=== PATIENT | male | born 1940 | race Caucasian/White ===

== ENCOUNTER 2017-02-10 04:59 | Day surgery (SDC) | payer OTHER ==
[2017-01-27 12:08] VITALS: BMI 27.0
--- NOTE | 2017-01-27 12:45 | PAT Medication Instructions ---
Service Date Jan 27, 2017. Current Home Medication List Aspirin (Aspirin Ec), 325 MG PO QPM Cholecalciferol (Vitamin D), 2,000 UNITS PO QPM Doxycycline Monohydrate (Monodox), 100 MG PO BID PRN for RN Dutasteride-Tamsulosin Hcl (Christin), 1 CAP PO HS Lisinopril (Zestril), 20 MG PO BID Metformin Hcl (Glucophage Ext Rel), 1,000 MG PO BID Methylsulfonylmethane (Msm), 1,500 MG PO QAM Metoprolol Succ (Toprol Xl) (Toprol-Xl), 25 MG PO QPM Nifedipine Ext Rel (Procardia Xl Ext Rel), 30 MG PO QPM Orphenadrine Citrate (Norflex), 200 MG PO BID PRN for RN Pantoprazole (Protonix), 40 MG PO QPM Red Yeast Rice Extract (Red Yeast Rice), 1,200 MG PO QPM Red Yeast Rice Extract (Red Yeast Rice), 600 MG PO QAM Sitagliptin Phosphate (Januvia), 100 MG PO QPM Medication Instructions For Your Scheduled Surgery - Hold the following medications 2 weeks prior to surgery: Aspirin (Aspirin Ec), 325 MG PO QPM - Hold the following medications 2 weeks prior to surgery: Red Yeast Rice Extract (Red Yeast Rice), 1,200 MG PO QPM Red Yeast Rice Extract (Red Yeast Rice), 600 MG PO QAM - Hold the following medications 48 hours prior to surgery: Metformin Hcl (Glucophage Ext Rel), 1,000 MG PO BID - Hold the following medications the morning of surgery: Lisinopril (Zestril), 20 MG PO BID Orphenadrine Citrate (Norflex), 200 MG PO BID PRN for RN Methylsulfonylmethane (Msm), 1,500 MG PO QAM - Take the following medications the morning of surgery with a sip of water: Pantoprazole (Protonix), 40 MG PO QPM - Hold the following medications as scheduled the night before surgery: Lisinopril (Zestril), 20 MG PO BID - Take the following medications as scheduled the night before surgery: Sitagliptin Phosphate (Januvia), 100 MG PO QPM Nifedipine Ext Rel (Procardia Xl Ext Rel), 30 MG PO QPM Metoprolol Succ (Toprol Xl) (Toprol-Xl), 25 MG PO QPM Dutasteride-Tamsulosin Hcl (Christin), 1 CAP PO HS Cholecalciferol (Vitamin D), 2,000 UNITS PO QPM Doxycycline Monohydrate (Monodox), 100 MG PO BID PRN for RN Orphenadrine Citrate (Norflex), 200 MG PO BID PRN for RN Doxycycline Monohydrate (Monodox), 100 MG PO BID PRN for RN Methylsulfonylmethane (Msm), 1,500 MG PO QAM If you have any questions please call us at [phone] (Pam Manriquez PA-C ) or [phone] or [phone]
--- NOTE | 2017-01-27 13:13 | DIAGNOSTIC IMAGING REPORT ---
TWO VIEW CHEST CLINICAL HISTORY: Preoperative examination. FINDINGS: PA and lateral chest radiographs are obtained. No prior studies are available for comparison at the time of dictation. The patient is status post midline sternotomy and aortic valve replacement. The heart is top normal for projection. There is atherosclerotic calcification of the thoracic and. The pulmonary vascular structures noncongested. The lungs and pleural spaces are clear. There is no pneumothorax. The skeletal structures are osteopenic. The bony thorax appears intact. IMPRESSION: No active disease in the chest. Electronically signed by: Ga Gutiérrez M.D. 01/27/2017 1:11 PM Dictated Date/Time: 01/27/2017 1:11 PM
[2017-01-27 13:18] LABS: BASO % 0.3 %; BASO ABS # 0.03 K/uL (0-0.2); COMPLETE YES; EOS % 2.7 %; HEMATOCRIT 42.2 % (42-52); IG% 0.3 %; LYMPH % 19.3 %; LYMPH ABS # 1.95 K/uL (1.2-3.4); MEAN CELL VOLUME 90.2 fL (80-100); MEAN CORPUSCULAR HEMOGLOBIN 31.8 pg (25-34); MEAN CORPUSCULAR HGB CONC 35.3 g/dl (32-36); MEAN PLATELET VOLUME 11.7 fL (7.4-10.4); MONO % 9.3 %; NEUT % 68.1 %; PLATELET COUNT 201 K/uL (130-400); RED BLOOD COUNT 4.68 M/uL (4.7-6.1); WHITE BLOOD COUNT 10.08 K/uL (4.8-10.8)
[2017-01-27 13:24] LABS: URINE APPEARANCE CLEAR (CLEAR); URINE BILIRUBIN NEG (NEG); URINE COLOR YELLOW; URINE NITRITE NEG (NEG); URINE PH 6.5 (4.5-7.5); URINE SPECIFIC GRAVITY 1.022 (1.000-1.030); UROBILINOGEN NEG (NEG)
[2017-01-27 13:31] LABS: MANUAL MICROSCOPIC REQUIRED? NO; REVIEW REQ? NO
[2017-01-27 13:37] LABS: BUN/CREATININE RATIO 19.6 (10-20); CALCIUM 9.5 mg/dl (8.5-10.1); CREATININE 0.96 mg/dl (0.60-1.40)
[~2017-02-10] VITALS: Ht 182.9 cm; Wt 92.4 kg
[~2017-02-10 04:59] MED LIST: ASPI325T39 PO; CHOL20009 PO; DOXY100C76 PO; DUTACAP PO; LISI-725 PO; METF1TAB53 PO; METO25TA3 PO; NIFE30TA83 PO; ORPH100T PO; PANT40TA PO; RED600TA PO; REDCAP2 PO; SITA100T3 PO; [UNRECOGNIZED DRUG - CODE] PO
[2017-02-10 05:41] VITALS: BP 153/78; PULSE 73; TEMP 36.4; O2SAT 99; Ht 182.9 cm; Wt 92.4 kg
[2017-02-10] MEDS ORDERED: LACTATED RINGER'S 1000ML 1,000 ML IV SCH (06:00)
[2017-02-10] MEDS ORDERED: CIPROFLOXACIN / D5W 400 MG IV SCH (06:00)
[2017-02-10] MEDS ORDERED: LIDOCAINE HCL 2% 2 ML VIAL (20MG/ML) ONE (06:55)
[2017-02-10] MEDS ORDERED: FENTANYL CITRATE INJ 50 MCG/1 ML 2 ML VIAL ONE ×2 (06:55→08:27)
[2017-02-10] MEDS ORDERED: PROPOFOL IV EMULSION 10 MG/ML 20 ML VIAL IV ONE (06:55)
[2017-02-10] MEDS ORDERED: MIDAZOLAM HCL 1 MG/ML 2ML VIAL ONE (06:56)
--- NOTE | 2017-02-10 07:02 | History & Physical Bridge Note ---
H&P Re-Evaluation Bridge Note: I have examined the patient, reviewed the History & Physical and in the interval since the performance of the History & Physical I have noted the following changes of clinical significance: No changes noted
[2017-02-10] MEDS ORDERED: PHEN-775 PO (07:28)
[2017-02-10] MEDS ORDERED: OXYC-57 PO (07:28)
[2017-02-10] MEDS ORDERED: CIPR-255 PO (07:28)
--- NOTE | 2017-02-10 07:39 | Discharge Instructions ---
Discharge Instructions Date of Service Feb 10, 2017. Admission Reason for Admission: Benign Prostatic Hypertrophy Discharge Discharge Diagnosis / Problem: BPH s/p GLTURP Discharge Goals Goal(s): Decrease discomfort, Improve function, Improve disease control, Therapeutic intervention Activity Recommendations Activity Limitations: per Instructions/Follow-up section Lifting Limitations: no more than 25 pounds, gradually increase as tolerated ( over a week) Exercise/Sports Limitations: rest today, gradually increase as tolerated ( over a week) May Resume Sexual Activity: after two weeks Shower/Bathe: tomorrow (no tub bath with catheter in place) Driving or Machine Use: resume 3 days after discharge Catheter to gravity drainage as instructed Blood in and around the catheter is expected . Instructions / Follow-Up Instructions / Follow-Up Appointment for catheter removal has been moved up to Friday02/12/17 at 09:45 AM. Please call office with any concerns. Discharge Diet Recommended Diet: Regular Diet (good fluid intake) Procedures Procedures Performed: Greenlight TURP, internal urethrotomy Pending Studies Studies pending at discharge: no Medical Emergencies . Who to Call and When: Medical Emergencies: If at any time you feel your situation is an emergency, please call 911 immediately. . Non-Emergent Contact Non-Emergency issues call your: Urologist Call Non-Emergent contact if: you have a fever, temperature is above 101, your pain is not controlled, your pain is worsening, your pain is unusual for you, your pain is concerning you, you have any medication questions . . "Provider Documentation" section prepared by Hong Bagley. VTE Core Measure Inpt VTE Proph given/why not?: SCD's [place] Drug Monitoring Program Search Results: patient reviewed within database, no issues identified
[2017-02-10] MEDS ORDERED: ONDANSETRON INJ 2 MG/ML 2 ML VIAL ONE (07:51)
[2017-02-10] MEDS ORDERED: BELLADONNA/OPIUM SUPP 60 MG SUPP PR ONE ×2 (07:51→08:26)
[2017-02-10] MEDS ORDERED: ATROPINE SULFATE 0.1 MG/ML 5ML SYR IV PRN (08:00)
[2017-02-10] MEDS ORDERED: PHENYLEPHRINE 100MCG/ML 5ML SYR IV PRN (08:00)
[2017-02-10] MEDS ORDERED: ONDANSETRON INJ 2 MG/ML 2 ML VIAL IV PRN (08:00)
[2017-02-10] MEDS ORDERED: HYDROmorphone INJ 2 MG/ML SYR/VIAL IV PRN (08:00)
[2017-02-10] MEDS ORDERED: EpHEDrine SULFATE INJ 50 MG/ML AMP IV PRN (08:00)
[2017-02-10] MEDS ORDERED: EpHEDrine SULFATE 50MG/5ML SYR ONE (08:02)
[2017-02-10] MEDS ORDERED: PHENYLEPHRINE 100MCG/ML 5ML SYR ONE (08:09)
[2017-02-10] MEDS ORDERED: PHENAZOPYRIDINE HCL 100 MG TAB PO PRN (09:00)
[2017-02-10] MEDS ORDERED: OXYCODONE/ACETAMINOPHEN 5-325 TAB PO PRN (09:00)
--- NOTE | 2017-02-10 09:23 | [facility] Post Operative Brief Note ---
Immediate Operative Summary Operative Date Feb 10, 2017. Pre-Operative Diagnosis Benign Prostatic Hyperplasia with Urinary Obstruction Post-Operative Diagnosis Benign Prostatic Hyperplasia with Urinary Obstruction Bulbar Urethral Stricture Procedure(s) Performed Greenlight TURP, internal urethrotomy, urethral dilation Surgeon Dr. Hong Bagley Systems Development Consultant Surgeon(s) None Estimated Blood Loss 10ml Findings Bulbar urethral stricture dilated, 73K J of energy used for GLTURP, open fossa with excellent hemostasis Specimens None as per surgeon Drains 24 fr 10 cc H2O martin Anesthesia GALMA Complication(s) None Disposition Recovery Room / PACU
[2017-02-10 09:40] VITALS: BP 135/65; PULSE 65; TEMP 36.4; O2SAT 97
[2017-02-10 10:10] VITALS: BP 125/74; PULSE 78; TEMP 36.4; O2SAT 97
--- NOTE | 2017-02-10 10:16 | Anesthesiology Progress Note ---
Anesthesia Post Op Note Date & Time Feb 10, 2017 at 10:16 Vital Signs Pain Intensity: 0 Vital Signs Past 12 Hours Date Time Temp Pulse Resp B/P Pulse Ox O2 Delivery O2 Flow Rate FiO2 02/10/17 09:40 36.4 65 16 135/65 97 10 02/10/17 09:30 132/73 02/10/17 09:27 67 16 95 02/10/17 09:27 69 16 02/10/17 09:25 126/80 02/10/17 09:22 69 18 02/10/17 09:22 69 18 92 02/10/17 09:21 66 15 94 02/10/17 09:21 66 15 02/10/17 09:20 136/76 02/10/17 09:17 36.4 02/10/17 09:16 68 19 97 02/10/17 09:16 67 19 02/10/17 09:15 134/80 02/10/17 09:11 72 17 02/10/17 09:11 71 17 96 02/10/17 09:10 125/76 02/10/17 09:06 69 16 96 02/10/17 09:06 68 16 02/10/17 09:05 131/80 02/10/17 09:01 72 15 99 02/10/17 09:01 72 15 02/10/17 09:00 69 20 02/10/17 09:00 69 20 133/73 100 02/10/17 08:55 66 16 126/72 100 02/10/17 08:55 66 16 02/10/17 08:50 70 18 02/10/17 08:50 70 18 124/69 100 02/10/17 08:45 63 14 02/10/17 08:45 63 14 113/70 100 02/10/17 08:40 77 21 02/10/17 08:40 78 21 135/71 100 02/10/17 08:36 114/68 02/10/17 08:35 71 16 98 02/10/17 08:35 71 16 02/10/17 08:35 36.0 79 16 114/68 96 Mask 10 02/10/17 05:41 36.4 73 18 153/78 99 Room Air Notes Mental Status: alert / awake / arousable, participated in evaluation Pt Amnestic to Procedure: Yes Nausea / Vomiting: adequately controlled Pain: adequately controlled Airway Patency, RR, SpO2: stable & adequate BP & HR: stable & adequate Hydration State: stable & adequate Anesthetic Complications: no major complications apparent
--- NOTE | 2017-02-10 14:05 | OPERATIVE REPORT ---
DATE OF OPERATION: 02/10/2017 PREOPERATIVE DIAGNOSIS: Benign prostatic hypertrophy with urinary obstruction. POSTOPERATIVE DIAGNOSES: Same, bulbar urethral stricture. PROCEDURES: GreenLight vaporization of the prostate gland, urethral dilation, and optical internal urethrotomy. SURGEON: Hong Bagley MD ASSURANCE MANAGER: None. ANESTHESIA: General anesthesia with laryngeal mask. COMPLICATIONS: None. FINDINGS: Bulbar urethral stricture, not allowing for easy passage of the scope, dilated with Amplatz dilators and incised at the 12 o'clock position to allow for easy mobility. Open prostate with excellent hemostasis after completion and 73,000 joules of energy used. ESTIMATED BLOOD LOSS: 10 mL. DRAINS LEFT IN PLACE: Include a 24-Haitian Deal catheter to gravity drainage with 10 mL of sterile water in the balloon. BRIEF HISTORY OF PRESENT ILLNESS: Mr. August is a pleasant 76-year-old male who has been on maximum medical therapy for a short obstructive prostate gland on cystoscopy and found to have persistent symptoms despite his medicine. After discussion of risks and benefits of various forms of intervention, he has decided upon a GreenLight vaporization of his prostate to manage his disease. Please see H\T\P for further details. Intravenous ciprofloxacin was provided for antibiotic coverage today and SCDs used for DVT prophylaxis. DESCRIPTION OF PROCEDURE: The patient was properly identified and brought to the operative suite. After identification of appropriate consent on the chart, general anesthesia with laryngeal mask was initiated and the patient was prepped and draped in standard fashion for this procedure. multimedia production assistant-out procedure was followed. GreenLight laser scope was advanced into the urethra that met with the resistance circumferentially at the level of the bulbar urethra. Attempts to bypass this using the scope were not easily successful. To avoid excess urethral trauma, a sensor wire was placed into the bladder as a safety wire and Amplatz dilators were placed to open the urethra channel. However, persistent rubbery resistance was noted to the urethral dilation. An urethrotome set was obtained and the obstructive tissue was incised gently at the 12 o'clock position to allow for easy passage of the scope. After this was completed, we were able to proceed with the GreenLight laser procedure as planned. The bladder was surveyed prior to GreenLight vaporization and ureteral orifices were noted to be well removed from the bladder neck. Grade 2-3 trabeculation with no evidence of intravesical stones, tumors or mucosal changes were noted. Using a side fire GreenLight laser scope, the prostate was circumferentially vaporized. The prostate was noted to be quite rubbery and fairly stiff likely accounting for the patient's significant voiding symptoms from a relatively small prostate gland. Relaxing incisions at the 5 and 7 o'clock position were made to open up the bladder neck and avoid future bladder neck contracture. Great care was taken to avoid injury to the ureteral orifices which were noted to be intact at the end of the case. After the prostate had been circumferentially vaporized an opening with no dissection being carried out past the verumontanum, the prostatic fossa was noted to be well opened with excellent hemostasis. A total of approximately 73,000 joules of energy had been used. After this was complete, the bladder was partially distended and resectoscope was removed. A 24-Haitian Deal catheter was placed with 10 mL of sterile water in the balloon without resistance and with clear urine drainage. Belladonna and opium suppository was provided for additional postoperative analgesia and anesthesia was reversed and the patient was transferred to recovery room in stable condition. FOLLOWUP CARE: The patient will be discharged home with a prescription for ciprofloxacin, Percocet, and Pyridium. His outpatient appointments including trial of void and postoperative visit confirmed. The patient is instructed to contact our service should he note any fevers, chills, nausea, vomiting or other significant difficulties in the postoperative period. I attest to the content of the Intraoperative Record and any orders documented therein. Any exceptio ns are noted below.
== END 2017-02-10 10:50 | disposition home or self-care (01) ==
LOC: C.ACU 04:59
PROVIDERS: ATTEND Urology
DX: N40.1 Benign prostatic hyperplasia with lower urinary tract symptoms (principal); N13.8 Other obstructive and reflux uropathy; N35.9 Urethral stricture, unspecified; E11.9 Type 2 diabetes mellitus without complications; I10 Essential (primary) hypertension; N41.9 Inflammatory disease of prostate, unspecified; R39.15 Urgency of urination; Z80.3 Family history of malignant neoplasm of breast; Z82.49 Family history of ischemic heart disease and other diseases of the circulatory system; Z79.82 Long term (current) use of aspirin; Z79.899 Other long term (current) drug therapy

== ENCOUNTER → 2017-02-26 | Outpatient (CLI) | payer OTHER ==
[~2017-02-26] MED LIST changes: +CIPR-255 PO; +OXYC-57 PO
== END | disposition home or self-care (01) ==
LOC: C.LABSPEC 17:01
PROVIDERS: ATTEND Urology
DX: N40.1 Benign prostatic hyperplasia with lower urinary tract symptoms (principal); N41.9 Inflammatory disease of prostate, unspecified; R39.15 Urgency of urination

== ENCOUNTER → 2017-05-12 | Outpatient (CLI) | payer OTHER ==
[2017-05-12 09:52] LABS: BLOOD UREA NITROGEN 20 mg/dl (7-18); BUN/CREATININE RATIO 19.9 (10-20); CREATININE 0.99 mg/dl (0.60-1.40)
== END | disposition home or self-care (01) ==
LOC: C.LAB 08:48
PROVIDERS: ATTEND Urology
DX: R39.15 Urgency of urination (principal)